=== PATIENT | male | born 1955 | race Hispanic/Latino ===

== ENCOUNTER 2018-05-18 05:57 | Day surgery (SDC) | payer MEDICARE ==
[2018-05-18] MEDS ORDERED: ECOTRIN PO ONE (06:36)
[2018-05-18] MEDS ORDERED: NACL 0.9% 500 ML 500 ML IV SCH (07:00)
[2018-05-18] MEDS ORDERED: NACL 0.45% 500 ML IV SCH (07:00)
[2018-05-18 07:07] LABS: Basophils # (Auto) 0.1 K/mm3 (0.0-0.1); Basophils % (Auto) 1.1 % (0.0-1.8); Eosinophils # (Auto) 0.1 K/mm3 (0.0-0.4); Eosinophils % (Auto) 0.9 % (0.0-4.3); Hematocrit 40.8 % (35.5-45.6); Hemoglobin 13.8 gm/dl (11.8-15.2); Lymphocytes # (Auto) 0.9 K/mm3 (1.2-5.4); Lymphocytes % (Auto) 15.5 % (13.4-35.0); Mean Corpuscular HGB Conc 34 % (32-34); Mean Corpuscular Hemoglobin 31 pg (28-32); Mean Corpuscular Volume 90 fl (84-94); Monocytes # (Auto) 0.5 K/mm3 (0.0-0.8); Monocytes % (Auto) 9.1 % (0.0-7.3); Platelet Count 120 K/mm3 (140-440); Red Blood Count 4.52 M/mm3 (3.65-5.03); Red Cell Distribution Width 15.1 % (13.2-15.2)
[2018-05-18 07:18] LABS: INR 1.32 (0.87-1.13)
[2018-05-18 07:19] LABS: Partial Thromboplastin Time 31.5 Sec. (24.2-36.6)
[2018-05-18 07:35] LABS: BUN/Creatinine Ratio 21; Blood Urea Nitrogen 19 mg/dL (9-20); Calcium 9.4 mg/dL (8.4-10.2); Hemolysis Index 18
[2018-05-18] MEDS ORDERED: HEPARIN/NS 5000 UNIT/500ML(CATH LAB) 1,000 ML IR ONE (08:21)
[2018-05-18] MEDS ORDERED: XYLOCAINE 2% INFILTRATI ONE (08:21)
[2018-05-18] MEDS ORDERED: HEPARIN 10,000 UNITS/10 ML ONE (08:21)
[2018-05-18] MEDS ORDERED: CALAN ONE (08:21)
[2018-05-18] MEDS ORDERED: SUBLIMAZE ONE (08:22)
[2018-05-18] MEDS ORDERED: VERSED ONE (08:22)
[2018-05-18] MEDS ORDERED: NITROGLYCERIN SYRINGE 0 ML ONE (08:22)
--- NOTE | 2018-05-18 09:51 | Short Stay Summary ---
Short Stay Documentation Date of service: 05/18/18 - History H&P: obtained from office - Allergies and Medications Current Medications: Allergies No Known Allergies Allergy (Unverified 05/18/18 05:58) Home Medications Medication Instructions Recorded Confirmed Last Taken Type 50+ Adult Eye Health Softgel 1 tab PO DAILY 05/18/18 05/18/18 05/17/18 History 1 tab Aspirin EC [Aspirin Enteric Coated 325 mg PO DAILY 05/18/18 05/18/18 05/17/18 History TAB] 325mg AtorvaSTATin [Lipitor] 40 mg PO DAILY 05/18/18 05/18/18 05/17/18 History 1600 Carvedilol [Coreg] 25 mg PO BID 05/18/18 05/18/18 05/18/18 04:00 History 25mg Digoxin [Digitek] 250 mcg PO DAILY 05/18/18 05/18/18 05/17/18 History 250mcg Furosemide [Lasix TAB] 20 mg PO DAILY 05/18/18 05/18/18 05/17/18 History 20mg Tamsulosin [Flomax] 0.4 mg PO DAILY 05/18/18 05/18/18 05/17/18 16:00 History Warfarin Sodium [Jantoven] 5 mg PO 4XW 05/18/18 05/18/18 05/12/18 History 5mg Warfarin Sodium [Jantoven] 7.5 mg PO 3XW 05/18/18 05/18/18 05/14/18 History 7.5mg Active Medications Sodium Chloride (Nacl 0.9% 500 Ml) 500 mls @ 50 mls/hr IV DIRECT WYATT Stop: 05/18/18 16:59 Last Admin: 05/18/18 08:01 Dose: 50 mls/hr - Brief post op/procedure progress note Date of procedure: 05/18/18 Pre-op diagnosis: chf and as Post-op diagnosis: same Procedure: see report Anesthesia: local Estimated blood loss: none Pathology: none - Disposition Condition at discharge: Good Disposition: [id number] TO HOME OR SELFCARE - Discharge Diagnoses (1) Acute on chronic systolic CHF (congestive heart failure), NYHA class 2 Status: Chronic (2) CAD (coronary artery disease), bypass graft transplanted heart Status: Acute (3) Hypertension Status: Chronic Qualifiers: Hypertension type: essential hypertension Qualified Code(s): I10 - Essential (primary) hypertension (4) Atrial fibrillation Status: Chronic Qualifiers: Atrial fibrillation type: persistent Qualified Code(s): I48.1 - Persistent atrial fibrillation (5) Hyperlipemia, mixed Status: Chronic (6) Diabetes mellitus Status: Chronic Qualifiers: Diabetes mellitus type: type 2 Diabetes mellitus termite control servicer insulin use: with termite control servicer use Diabetes mellitus complication status: with circulatory complication Diabetes mellitus complication detail: with peripheral angiopathy without gangrene Qualified Code(s): E11.51 - Type 2 diabetes mellitus with diabetic peripheral angiopathy without gangrene; Z79.4 - longterm (current) use of insulin (7) Aortic stenosis, severe Status: Chronic (8) Pulmonary hypertension Status: Chronic Short Stay Discharge Plan Activity: advance as tolerated Diet: low fat, low cholesterol, low salt, diabetic Wound: keep clean and dry Special Instructions: hold Metformin (for 48 hours) Durable Medical Equipment Needed Upon Discharge: Cane Follow up with: LANA BRICENO MD [Primary Care Provider] - 7 Days
--- NOTE | 2018-05-18 10:56 | Cardiac Catherization Report ---
Left and right heart catheterization with selective angiogram of the venous bypass graft and of the left internal mammary graft. CLINICAL INFORMATION: This is a 62-year-old gentleman with history of coronary artery disease bypass in 1992. The patient from catheterization in 2010, had moderate aortic stenosis with occluded SVG graft to PDA, but well collateralized from left to right with a patent KOROMA to LAD and patent SVG to OM. The patient presents back with heart failure symptoms. An echocardiogram shows severe aortic stenosis with severe pulmonary hypertension, [id number] MR. The patient is [place] Heart Classification 2-3, is here for following procedure. Moderate sedation was done under supervised for 40 minutes, start times at 8:52 a.m. and end time 9:42 a.m. A 50 minutes of total sedation time of 0.25 of fentanyl and 0.5 mg of Versed given. The procedure was done by the right common femoral vein and right common femoral artery, sterile technique, local anesthesia, 6-Urdu groin sheath placed in the right common femoral artery and an 8-Urdu groin sheath placed right common femoral vein. So right heart catheterization was done, which revealed wedge was 30 mmHg, PA was 71/34 mmHg, RV was 74/12 mmHg. RA was 12 mmHg, mean PA sat was 62%, aortic sat was 92%. RV sat was 61. RA was 64%. The patient's cardiac output by Sherin was 4.38 and cardiac index was 2.46. The patient's PVR was 235 D/s and tPVR was 920 D/s. The patient left heart catheterization with the left system was engaged with JL5 catheter. Left main is a medium caliber diffuse calcified 20-30% LAD after a LAD proximal 90%, then after the first septal becomes 100%, septals feed and AV groove of this circ feed extensively into the PDA which retrograde fills back up to the mid RCA. Heavy calcified coronary system noted. Circ itself is a cqddg-li-ithwzy caliber vessel, patent with mild to moderate luminal irregularities and AV groove. OM1 is 100%. RCA engaged JR4, is proximal 100%. SVG to PDA is 100%, no change from 2011 engaged with JR4 catheter. JR4 engaged the SVG to OM is large caliber graft, free of disease at the ostium, body, and anastomosis site, feeds into a small to medium caliber. OM1 with multiple branches that are patent. KOROMA was engaged with an IM catheter, is a large caliber graft, free of disease at the ostium, body, and anastomosis site into the mid LAD. The distal portion of the LAD, there is a focal 80% lesion, which is a medium to large caliber LAD vessel. LV gram shows EF around 50%. LVEDP at 27 mmHg. LV was 208/27, aortic is 153/92 with a mean gradient 55 mmHg, blfj-fr-siim was 55 with a gradient calculated valve area 0.58. I was able to cross the aortic valve with a Glidewire JR4 exchanged out for a Alden catheter dual pressures. No gradient in the Alden catheter in the aorta. all catheters removed over guidewire, a 6-Urdu arterial sheath and 8-Urdu venous sheath removed, manual pressure held. No hematoma, no bleeding. SUMMARY: Severe pulmonary hypertension with a PA of 71/34 with a wedge of 30 mmHg. LVEDP of 27 mmHg, LV was 208/27, aortic is 153/92 with a iudq-dq-vooj gradient of 56 and a mean of 55 mmHg. No step up or step down noted suggest of shunt , cardiac output of 4.38 and cardiac index of 2.46 with left main diffuse 20-30% calcified LAD proximal 100%, extensive collateralization from the first septals feeding into the PDA all the way to the mid RCA and also from [place] circ, patent SVG to OM, KOROMA to LAD was patent, but [place] vessel, has an 80% lesion with RCA 100% proximally and occluded SVG graft to PDA with borderline normal LV function. The patient will see [facility] at [facility]. Discussed in detail with the patient and patient's family. Restart Coumadin. Hold metformin for 48 hours. JOB# [id number] TIM/FRANCINE ALMARAZ
[2018-05-18 13:02] VITALS: BP 120/90
== END 2018-05-18 15:00 | disposition home or self-care (01) ==
LOC: CATHLABREC 05:57
PROVIDERS: ATTEND Internal Medicine
DX: I11.0 Hypertensive heart disease with heart failure (principal); I50.9 Heart failure, unspecified; I25.10 Atherosclerotic heart disease of native coronary artery without angina pectoris; I25.2 Old myocardial infarction; I25.5 Ischemic cardiomyopathy; I27.20 Pulmonary hypertension, unspecified; I48.91 Unspecified atrial fibrillation; I44.0 Atrioventricular block, first degree; E11.9 Type 2 diabetes mellitus without complications; Z79.899 Other long term (current) drug therapy
CPT/HCPCS: 36415; 80048; 85025; 85610; 85730; 93005; 93010; 93461; 99156; 99157; C1751; C1769; C1894; J1644; J2250; J3010; J7040; Q9967